=== PATIENT | female | born 1990 | race Caucasian/White ===

== ENCOUNTER 2023-12-26 19:12 | Emergency (ER) | payer OTHER, SELFPAY ==
[2023-12-26 19:16] VITALS: BP 183/101
[2023-12-26 20:43] VITALS: BMI 32.6
--- NOTE | 2023-12-26 20:45 | EDRN ---
Pt started Rinvoq at the end of October. Pt noted rash under her breasts at the end of November. Pt's doctor doubled her dose of rinvoq for two weeks then she saw another doctor who took her off the rinvoq after which she started with a full body rash
three days later. Pt was started on diflucan. Pt saw her doctor on Wednesday and says she had a mild rash on her face at the time. Doctor felt it was dermatitis and pt was given samples of cream to use - zoryve. Pt used it once or twice and the
rash got worse. text the window draper yesterday and pt was told to stop taking the diflucan - doctor felt pt's face rash was related to diflucan. Pt notes a small blister lower R lip that formed in the past 4 hours. Pt denies cp, sob,
n/v, fever/chills.
[2023-12-26 21:01] VITALS: BP 114/75
--- NOTE | 2023-12-26 21:12 | ED.GENMED ---
History of Present Illness
General
Chief Complaint: Skin Problem
Source: patient
Exam Limitations: none
Time Seen by Provider: 12/26/23 19:58
History of Present Illness
History of Present Illness:
This is a 33 year old female that comes in with c/o rash. States that she has Psoriasis and was put on Rinvoq. States that she had 15mg for the first week. States that she was then taken off this for one week and given 2 injections on Benzylic.
The next day she started with a rash. States that she was then place back on Rinvoq. States that for 2 months she had leakage of lymph fluid in the vaginal area so they put her on Diflucan for 3 days. Stats that she got some better so they gave her
More Diflucan. States that she has been covered in a rash that is not getting any better. States that she was given a cream but this is not helping. States that she stopped the Rinvoq. States that she has a low grade fever, nausea, diarrhea, and
dizziness. Denies any chills, chest pain, SOB, abd pain, vomiting, urinary burning or headache.
Past History
Past History
ED Past Medical History: Arrthythmia (SVT), Psychiatric (Depression, PTSD, ADHD) and Other (Psoriasis)
ED Past Surgical History: None
Social History
Tobacco: Non-smoker
Alcohol: Occasional
Personal:
Living: with family
Employment: Employed
Review of Systems
Review of Systems
All Other Systems: ROS reviewed and negative except as documented in HPI and ROS
Constitutional: Reports fever (low grade); Denies chills
EENT: Reports no symptoms
Respiratory: Reports no symptoms; Denies cough or trouble breathing
Cardiac: Reports no symptoms; Denies chest pain
ABD/GI: Reports nausea and diarrhea; Denies abdominal pain or vomiting
: Reports no symptoms; Denies dysuria, frequency or urgency
Musculoskeletal: Reports no symptoms
Skin: Reports rash
Neurological: Reports dizzy; Denies headache
Psychiatric: Reports no symptoms
Phy Exam
General Physical Exam
General Presentation: no apparent distress
General age: appears stated age
General Skin: warm and dry
General Habitus: normal
General Mental: alert
General Hydration: appears well hydrated
ENT Exam
ENT Exam: TM's normal, pharynx normal and neck supple
Eye Exam
Eye Exam: EOMI
Cardiovascular Exam
Cardiovascular Exam: regular rate/rhythm, no edema and normal peripheral pulses
Pulmonary Exam
Pulmonary Exam: lungs clear, no respiratory distress, no rales, chest non tender, no crackles, no rhonchi, no wheezing and no cough
Gastrointestinal Exam
Gastrointestinal Exam: normal bowel sounds, non tender, soft, no organomegaly, no pulsatile mass and non distended
Musculoskeletal Exam
Musculoskeletal Exam: full ROM and no edema
Skin Exam
Skin Exam: other (rash over face, back chest, arms and upper thighs )
Psychiatric Exam
Psychiatric Exam: normal mood/affect
Course
Orders/Labs/Results
Orders:
Orders
12/26/23 21:11
0.9% Sodium Chloride 500 ml [Nss] 500 ml IV BOLUS
Dexamethasone Sod Phosphate [Decadron] 20 mg IV NOW STA
Diphenhydramine [Benadryl] 25 mg IV NOW STA
Famotidine [Pepcid] 20 mg IV NOW STA
12/26/23 21:18
Test Result ONCE
12/26/23 21:24
Complete Blood Count/With Diff Urgent
12/26/23 22:00
Comprehensive Metabolic Panel Urgent
HCG, Serum Qualitative Screen Urgent
12/26/23 23:23
Diphenhydramine [Benadryl] 25 mg IV NOW STA
Abnormal Lab Results
12/26/23 12/26/23
21:24 22:00
Absolute Monos (auto) 0.9 H 10^3/uL
(0.1-0.6)
Absolute Eos (auto) 1.0 H 10^3/uL
(0-0.7)
Eosinophils % 9.3 H %
(0-6)
Carbon Dioxide 21 L mmol/L
(22-30)
BUN 18 H mg/dl
(7-17)
12/26/23 21:24
12/26/23 22:00
Vital Signs
Initial and Last Documented VS:
Initial Vital Signs
Temp Pulse Resp BP Pulse Ox
100 F 95 18 183/101 100
12/26/23 19:16 12/26/23 19:16 12/26/23 19:16 12/26/23 19:16 12/26/23 19:16
Last Documented Vital Signs
Temp Pulse Resp BP Pulse Ox
98.8 F 71 14 102/58 100
12/26/23 21:01 12/26/23 23:20 12/26/23 23:20 12/26/23 23:20 12/26/23 23:20
MDM/Problems Addressed
Differential Diagnosis Includes:
Allergic reaction to medication
MDM/Problems Addressed:
This is a 33 year old female that comes in with c/o rash after being on Rinvoq. States that this is not getting any better and that she was given a cream but his is not helping.
Will check labs, Give IV steroid, Pepcid and Benadryl
Back into see patient. States that her itching is a little better. Explained to patient that this may just have to run it course as this may be all medication related. Will place patient on a steroid for the next 5 days. Patient to also use Benadryl
50mg every 6 hours for the itching and Pepcid 20 mg which is over the counter. Patient to return with any concerns.
Chronic conditions affecting care:
NA
Acute Exacerbation and/or Progression of Chronic Illness:
NA
*Pulse Oximetry
Patient hypoxic: no
*EKG
Interpreted by ED Provider?: NA
Rate: EKG- N/A
*Healthcare Consulting Manager Interpretation
Rate: Healthcare Consulting Manager- N/A
*Critical Care Note
Total Time (30-74mins, 75-104mins- exclusive of procedures): Not Applicable
ED Attending Note
-
Portions of this chart may have been created with voice recognition software.� Occasional wrong word or��sound alike� substitutions may have occurred due to the inherent limitations of voice recognition software.
Discharge Plan
Departure
Patient Disposition: Home (Routine Discharge)
Date of Disposition: 12/26/23
Time of Disposition: 23:25
Patient with high blood pressure during this ER visit?: No
Condition: Good
Covid-19: Not Applicable
Discharge Problem:
Generalized papular rash
Instructions: Skin Rash (DC)
Prescriptions:
New
prednisone 20 mg tablet
40 mg PO DAILY Qty: 10 0RF
No Action
bupropion HCl [Wellbutrin XL] 300 mg Tablet Extended Release 24 Hr
300 mg PO DAILY
metoprolol tartrate 75 mg Tablet
75 mg PO DAILY
Referrals:
Rufino Vidal DO [Family Provider] - Call in 1-3 days for appt
Stand Alone Forms: Return to Work
Activity Restrictions/Additional Instructions:
As discussed, your blood work is normal. This may just take time until your body has gotten rid of the medication. You have had a prescription for a steroid sent to your Pharmacy. Please take this as directed until finished. You may also use
Pepcid 20mg which is over the counter which will help decrease the histamine release. Please use Benadryl 50mg every 6 hours for the itching. This will make you tired. Please on driving or alcohol when taking. Follow up with the family doctor. IF
YOU HAVE ANY OTHER CONCERNS PLEASE RETURN TO THE EMERGENCY ROOM.
Interventions
Interventions:
*Risk Screen - Suicide Last Done: 12/26/23 19:21
*General Assessment Last Done: 12/26/23 19:21
*Neglect/Abuse Screening Last Done: 12/26/23 20:43
*ED COVID-19 Vaccine History Last Done: 12/26/23 20:43
ED-Skin Assessment Last Done: 12/26/23 20:43
Discharge Date and Time
Print Language: GREEK
[2023-12-26 21:37] LABS: % Basophils 0.3 % (0-2); % Eosinophils 9.3 % (0-6); % Immature Granulocytes 0.2 % (0-0.5); % Lymphocytes 22.7 % (20.5-51.1); % Monocytes 8.8 % (1.7-9.3); % Neutrophils 58.7 % (42.2-75.2); Absolute Lymphocytes 2.3 10^3/uL (1.2-3.4); Absolute Monocytes 0.9 10^3/uL (0.1-0.6); Hematocrit 39.7 % (37.0-47.0); Hemoglobin 14.7 g/dL (12.0-16.0); Mean Corpuscular Hgb 30.5 pg (27.0-31.0); Mean Corpuscular Volume 82.4 fL (81.0-99.0); Mean Platelet Volume 9.4 fL (7.4-10.4); Nucleated Red Blood Cells % 0 %; Platelet Count 362 10^3/uL (130-400); Red Blood Cell Count 4.82 10^6/uL (4.20-5.40); White Blood Cell Count 10.3 10^3/uL (4.8-10.8)
--- NOTE | 2023-12-26 21:54 | EDRN ---
Jerman Cortez RN attempting US guided iv insertion
[2023-12-26] MEDS: BENADRYL 25 MG IV ×2 (21:58→23:37)
[2023-12-26] MEDS: NSS 500 IV (21:58)
[2023-12-26] MEDS: PEPCID 20 MG IV (22:02)
[2023-12-26] MEDS: DECADRON 20 MG IV (22:08)
[2023-12-26 22:21] LABS: HCG, Serum Qualitative Screen Negative
[2023-12-26 22:25] LABS: ALT (SGPT) 27 U/L (0-35); AST (SGOT) 28 U/L (14-36); Albumin 4.7 g/dl (3.5-5.0); Alkaline Phosphatase 82 U/L (38-126); Blood Urea Nitrogen 18 mg/dl (7-17); Calcium 9.9 mg/dl (8.4-10.2); Carbon Dioxide 21 mmol/L (22-30); Chloride 103 mmol/L (98-107); Estimated Creatinine Clearance 116 ml/min; Glucose 79 mg/dl (70-99); Sodium 139 mmol/L (135-145); Total Bilirubin 0.5 mg/dl (0.2-1.3); Total Protein 7.3 g/dl (6.3-8.2); eGFR > 60.00
[2023-12-26 23:20] VITALS: BP 102/58
== END 2023-12-27 00:03 | disposition home or self-care (01) ==
LOC: EMR 19:12
PROVIDERS: Clinical Nurse Specialist Family Health; EMERGENCY PHYSICIAN Emergency Medicine; FAMILY PHYSICIAN Family Medicine
DX: R21 Rash and other nonspecific skin eruption (principal); R50.9 Fever, unspecified; R11.0 Nausea; R42 Dizziness and giddiness; R19.7 Diarrhea, unspecified; L29.9 Pruritus, unspecified; F32.A Depression, unspecified; L40.9 Psoriasis, unspecified; F43.10 Post-traumatic stress disorder, unspecified; F90.9 Attention-deficit hyperactivity disorder, unspecified type; I47.10 Supraventricular tachycardia, unspecified; Z88.8 Allergy status to other drugs, medicaments and biological substances
CPT/HCPCS: 99284; 96374; 96375 ×2; 96361; 96376; 80053; 84703; 85025

== ENCOUNTER 2024-01-05 01:26 | Emergency (ER) | payer OTHER, SELFPAY ==
[2024-01-05 01:29] VITALS: BP 134/95
[2024-01-05 01:52] VITALS: BMI 33.6
--- NOTE | 2024-01-05 01:54 | ED.GENMED ---
History of Present Illness
General
Chief Complaint: Allergic Reaction
Time Seen by Provider: 01/05/24 01:37
History of Present Illness
History of Present Illness:
33-year-old female history of psoriasis presenting with rash. Patient states that she was taking Rinvoq a few weeks ago and then was given Benzylic x2. Pt states that after that, she started with a rash. Pt states she took diflucan for multiple
days for fluid leaking in the vaginal area for the past 2-3 months and had a worsening rash prompting ED evaluation. Pt states she was given prednisone which helped improve symptoms. Pt states fluid leakage returned, so she took Diflucan again which
caused a worsening red rash to her chest, face, and abdomen prompting ED arrival. Pt denies lip/tongue swelling, nausea, vomiting, diarrhea, wheezing, or fever. Pt states she has been taking benadryl with mild relief. Pt states she has an
appointment with her manager sign in the morning.
Past History
Past History
ED Past Medical History: Arrthythmia (SVT), Psychiatric (Depression, PTSD, ADHD) and Other (Psoriasis)
ED Past Surgical History: None
Social History
Tobacco: Non-smoker
Alcohol: Occasional
Personal:
Living: with family
Employment: Employed
Phy Exam
Physical Exam
Physical Exam:
General: Alert, no acute distress
Head: NCAT
Eyes: clear conjunctiva
ENT: Moist mucous membranes. No lip or tongue swelling
Neck: supple
Cardiac: regular rate and rhythm, no murmur
Lungs: clear to auscultation bilaterally. No wheezes, rales, or rhonchi. Speaking full unlabored sentences. No respiratory distress.
Abdomen: soft, nondistended nontender. No rebound or guarding.
MSK: no lower extremity edema bilaterally. No deformity
Skin: Erythematous blanching papular rash to face, neck, chest, abdomen, upper thighs. Spares mucous membranes. No vesicles. No increased warmth.
Neuro: Alert and oriented x3. no focal deficits
Course
Orders/Labs/Results
Orders:
Orders
01/05/24 01:51
Famotidine [Pepcid] 40 mg PO NOW STA
Prednisone [Deltasone] 40 mg PO NOW STA
Vital Signs
Initial and Last Documented VS:
Initial Vital Signs
Temp Pulse Resp BP Pulse Ox
99.2 F 84 18 134/95 100
01/05/24 01:29 01/05/24 01:29 01/05/24 01:29 01/05/24 01:29 01/05/24 01:29
Last Documented Vital Signs
Temp Pulse Resp BP Pulse Ox
99.2 F 92 18 126/81 98
01/05/24 01:29 01/05/24 02:04 01/05/24 02:04 01/05/24 02:04 01/05/24 02:04
MDM/Problems Addressed
MDM/Problems Addressed:
33-year-old female history of psoriasis presenting with worsening rash after taking Diflucan today. No respiratory distress. Does not appear infectious. Will start on prednisone, Pepcid, continue Benadryl prn, discharge with dermatology follow-up
in the morning
*Critical Care Note
Total Time (30-74mins, 75-104mins- exclusive of procedures): Not Applicable
ED Attending Note
-
Portions of this chart may have been created with voice recognition software.� Occasional wrong word or��sound alike� substitutions may have occurred due to the inherent limitations of voice recognition software.
Discharge Plan
Departure
Patient Disposition: Home (Routine Discharge)
Date of Disposition: 01/05/24
Time of Disposition: 02:01
Patient with high blood pressure during this ER visit?: Yes
Discharge Problem:
Rash
Instructions: Skin Rash ED, BLOOD PRESSURE
Prescriptions:
New
prednisone 20 mg tablet
40 mg PO DAILY Qty: 8 0RF
No Action
bupropion HCl [Wellbutrin XL] 300 mg Tablet Extended Release 24 Hr
300 mg PO DAILY
metoprolol tartrate 75 mg Tablet
75 mg PO DAILY
dextroamphetamine-amphetamine [Adderall] 20 mg Tablet
40 mg PO DAILY
Activity Restrictions/Additional Instructions:
Take prednisone 40mg (2 pills) daily starting tomorrow. You received first dose in ER today
Continue taking benadryl. Take pepcid daily as needed for rash/itching
Follow up with dermatology as scheduled tomorrow
Return to the emergency department for fever, lip/tongue swelling or new/worsening symptoms
Interventions
Interventions:
*Risk Screen - Suicide Last Done: 01/05/24 01:29
*General Assessment Last Done: 01/05/24 01:29
*Neglect/Abuse Screening Last Done: 01/05/24 01:43
ED- Fall Risk Assessment Last Done: 01/05/24 01:55
*ED COVID-19 Vaccine History Last Done: 01/05/24 01:54
*Nursing Disposition Last Done: 01/05/24 02:24
ED- Cardiac Assessment Last Done: 01/05/24 01:55
ED- Pulmonary Assessment Last Done: 01/05/24 01:55
ED-Skin Assessment Last Done: 01/05/24 01:44
Discharge Date and Time
Discharge Date/Time: 01/05/24 02:25
Print Language: AUSTRALIAN
[2024-01-05] MEDS: PEPCID 40 MG PO (02:01)
[2024-01-05] MEDS: DELTASONE 40 MG PO (02:01)
[2024-01-05 02:04] VITALS: BP 126/81
== END 2024-01-05 02:27 | disposition home or self-care (01) ==
LOC: EMR 01:26
PROVIDERS: EMERGENCY PHYSICIAN Emergency Medicine; FAMILY PHYSICIAN Family Medicine
DX: R21 Rash and other nonspecific skin eruption (principal); R03.0 Elevated blood-pressure reading, without diagnosis of hypertension; L40.9 Psoriasis, unspecified; F43.10 Post-traumatic stress disorder, unspecified; F32.A Depression, unspecified; F90.9 Attention-deficit hyperactivity disorder, unspecified type; I47.10 Supraventricular tachycardia, unspecified; Z88.8 Allergy status to other drugs, medicaments and biological substances
CPT/HCPCS: 99283